=== PATIENT | female | born 2000 | race Two or more races ===

== ENCOUNTER 2024-02-26 17:16 | Outpatient (CLI) | payer OTHER ==
[~2024-02-26] VITALS: Ht 167.6 cm; Wt 104.8 kg
[2024-02-26 16:30] VITALS: BP 102/66
[2024-02-26 16:40] VITALS: BP 102/66
[2024-02-26] MEDS ORDERED: RINGERS SOLUTION,LACTATED 1,000 ML IV SCH (17:30)
[2024-02-26 17:46] LABS: HEMATOCRIT 30.2 % (36.0-45.00); HEMOGLOBIN 10.4 g/dL (12.0-15.00); MEAN CELL VOLUME 92.3 fL (80.00-100.00); MEAN CORPUSCULAR HEMOGLOBIN 31.6 pg (27.00-32.0); MEAN CORPUSCULAR HGB CONC 34.3 g/dl (32.0-36.0); PLATELET COUNT 208 K/uL (150-450); RED BLOOD COUNT 3.27 M/uL (4.00-6.00); RED CELL DISTRIBUTION WIDTH 12.9 % (11.5-14.5)
[2024-02-26 17:58] LABS: PH,URINE 6.5 (5.0-8.0); URINE APPEARANCE Clear; URINE BILIRRUBIN Negative (NEGATIVE); URINE BLOOD Negative; URINE COLOR Yellow; URINE GLUCOSE Negative (NEGATIVE); URINE KETONE Negative (NEGATIVE); URINE LEUKOCYTE Large; URINE NITRATE Negative; URINE PROTEIN Negative (NEGATIVE)
[2024-02-26 18:03] LABS: URINE BACTERIA 4920.1 uL (0.0-1933); URINE EPITHELIAL CELLS 70.4 uL (0.0-38.8)
[2024-02-26 18:41] LABS: URINE RBC 0.7 uL (0.0-20.8)
[2024-02-26 19:40] VITALS: BP 111/62
[2024-02-26 23:20] VITALS: BP 92/59
[2024-02-27 03:15] VITALS: BP 94/62
[2024-02-27 07:20] VITALS: BP 103/61; O2SAT 100
[2024-02-27 10:02] VITALS: BP 103/61
== END 2024-02-27 10:02 | disposition home or self-care (01) ==
LOC: OBS/DEL 17:16
PROVIDERS: ATTEND Specialist
DX: O26.893 Other specified pregnancy related conditions, third trimester (principal); Z3A.34 34 weeks gestation of pregnancy

== ENCOUNTER 2024-03-24 10:00 | Inpatient (IN) | payer OTHER ==
[~2024-03-24] VITALS: Ht 167.6 cm; Wt 109.3 kg
[2024-03-24 12:50] LABS: HEMATOCRIT 30.6 % (36.0-45.00); HEMOGLOBIN 10.6 g/dL (12.0-15.00); MEAN CELL VOLUME 89.7 fL (80.00-100.00); MEAN CORPUSCULAR HGB CONC 34.5 g/dl (32.0-36.0); PLATELET COUNT 221 K/uL (150-450); RED BLOOD COUNT 3.41 M/uL (4.00-6.00); RED CELL DISTRIBUTION WIDTH 13.2 % (11.5-14.5)
[2024-03-24 13:00] LABS: URINE APPEARANCE Cloudy; URINE BILIRRUBIN Small (NEGATIVE); URINE COLOR Dark Yellow; URINE GLUCOSE Negative (NEGATIVE); URINE KETONE Trace (NEGATIVE); URINE LEUKOCYTE Large; URINE NITRATE Negative; URINE PROTEIN 30 (NEGATIVE)
[2024-03-24 13:06] LABS: URINE EPITHELIAL CELLS 139.3 uL (0.0-38.8); URINE RBC 54.6 uL (0.0-20.8); URINE WBC 271.1 uL (0.0-23.2)
[2024-03-24 13:13] LABS: INR 0.94; PARTIAL THROMBOPLASTIN TIME 24.1 SECONDS (22.0-34.0); PROTHROMBIN TIME 10.3 SECONDS (9.0-11.5)
[2024-03-24 13:25] LABS: URINE BACTERIA > 9821.5 uL (0.0-1933); URINE BLOOD TRACES; URINE CAST 0.76 uL (0.0-1.40)
[2024-03-24 13:26] LABS: URINE CRYSTALS FEW /HPF
[2024-03-24 13:56] LABS: ALBUMIN 2.5 gm/dL (3.4-5.0); BILIRUBIN TOTAL 0.43 mg/dL (0.3-1.2); CALCIUM 8.6 mg/dL (8.5-10.1); CREATININE SERUM 0.45 mg/dL (0.55-1.02); GFR 169.76; GLOBULINA 3.4 G/DL (2.4-3.5); POTASSIUM 3.92 mEq/L (3.5-5.1); TOTAL PROTEIN 5.9 gm/dL (6.4-8.2)
[2024-03-31] MEDS ORDERED: PRENATAL + DHA1 EAC1 PO (06:07)
[2024-03-31 06:08] VITALS: BP 110/72
[2024-03-31] MEDS ORDERED: CEFAZOLIN SODIUM 1,000 MG VIAL IV ONE (08:15)
[2024-03-31] MEDS ORDERED: OXYTOCIN 20 UNITS/1000ML RL PIGGYBAG IV ONE (08:15)
[2024-03-31] MEDS ORDERED: PROMETHAZINE HCL 50 MG/ML AMPUL IM PRN (09:00)
[2024-03-31] MEDS ORDERED: MEPERIDINE HCL/PF 50 MG/ML VIAL IM PRN (09:00)
[2024-03-31] MEDS ORDERED: MORPHINE SULFATE 4 MG/ML VIAL IV ONE (10:10)
[2024-03-31 12:25] VITALS: BP 103/67
[2024-03-31] MEDS ORDERED: CEFAZOLIN SODIUM 1,000 MG VIAL IV SCH (14:00)
[2024-03-31 16:00] VITALS: BP 100/64
[2024-04-01 00:44] LABS: HEMATOCRIT 28.4 % (36.0-45.00); MEAN CORPUSCULAR HEMOGLOBIN 30.7 pg (27.00-32.0); MEAN CORPUSCULAR HGB CONC 33.7 g/dl (32.0-36.0); PLATELET COUNT 209 K/uL (150-450); RED BLOOD COUNT 3.12 M/uL (4.00-6.00); RED CELL DISTRIBUTION WIDTH 13.4 % (11.5-14.5)
[2024-04-01 00:45] LABS: HEMOGLOBIN 9.6 g/dL (12.0-15.00)
[2024-04-01 01:28] VITALS: BP 104/67
[2024-04-01 08:22] VITALS: BP 110/74
[2024-04-01] MEDS ORDERED: DOCUSATE CALCIUM 240 MG CAPSULE PO SCH (10:58)
[2024-04-01] MEDS ORDERED: OxyCODONE HCL/APAP UD (PERCOCET) PO PRN (11:00)
[2024-04-01 15:29] VITALS: BP 120/72
[2024-04-01] MEDS ORDERED: SIMETHICONE 125 MG CAPSULE PO SCH (21:00)
[2024-04-02 00:03] VITALS: BP 91/56
[2024-04-02 08:52] VITALS: BP 116/81
[2024-04-02 15:42] VITALS: BP 90/58
[2024-04-02 23:50] VITALS: BP 94/68
[2024-04-03] MEDS ORDERED: IBUPROFEN800 MG PO (07:28)
[2024-04-03 08:04] VITALS: BP 111/74
== END 2024-04-03 13:56 | disposition home or self-care (01) | DRG 785 ==
LOC: O/R 03-31 05:47 → OB/GYN 03-31 07:00
PROVIDERS: ADMIT Specialist; ATTEND Specialist
PROC: 0UB70ZZ Excision of Bilateral Fallopian Tubes, Open Approach (ICD-10-PCS; 2024-03-31)
PROC: 4A1HXCZ Monitoring of Products of Conception, Cardiac Rate, External Approach (ICD-10-PCS; 2024-03-31)
PROC: 10D00Z1 Extraction of Products of Conception, Low, Open Approach (ICD-10-PCS; principal; 2024-03-31 07:00)
DX: O34.211 Maternal care for low transverse scar from previous cesarean delivery (principal); O99.824 Streptococcus B carrier state complicating childbirth; Z30.2 Encounter for sterilization; Z3A.39 39 weeks gestation of pregnancy; Z37.0 Single live birth; Z20.822 Contact with and (suspected) exposure to COVID-19